=== PATIENT | female | born 1990 | race Caucasian/White ===

== ENCOUNTER 2018-05-04 21:07 | Inpatient (IN) | payer OTHER, MEDICAID ==
[~2018-05-04] VITALS: Ht 177.8 cm; Wt 77.8 kg
[2018-05-04] MEDS ORDERED: methylPREDNISolone SOD SUCC 125 MG/2 ML ONE (21:40)
[2018-05-04] MEDS: ALBUTEROL 0.5%, 20ML NPPB SCH ×2 (21:43→23:07)
[2018-05-04] MEDS ORDERED: methylPREDNISolone SOD SUCC 125 MG/2 ML IVP ONE (22:00)
[2018-05-04 22:07] LABS: BASOPHILS # (AUTO) 0.09 x10^3/uL (0-0.1); BASOPHILS % (AUTO) 1 % (0-1); EOSINOPHILS # (AUTO) 1.38 x10^3/uL (0-0.4); EOSINOPHILS % (AUTO) 13 % (1-7); LYMPHOCYTES # (AUTO) 2.93 x10^3/uL (1-3.4); LYMPHOCYTES % (AUTO) 27 % (22-44); MD NO; MEAN CORPUSCULAR HEMOGLOBIN 30.6 pg (27.0-34.8); MEAN CORPUSCULAR VOLUME 89.9 fL (80-100); MEAN PLATELET VOLUME 7.9 fL (7.4-10.4); MONOCYTES % (AUTO) 12 % (2-9); NEUTROPHILS # (AUTO) 5.11 x10^3/uL (1.8-6.8); NEUTROPHILS % (AUTO) 47 % (42-75); PLATELET COUNT 243 x10^3/uL (130-400); RED BLOOD COUNT 5.71 x10^6/uL (3.82-5.3); RED CELL DISTRIBUTION WIDTH 13.1 % (9.6-15.2)
[2018-05-04 22:17] LABS: ALANINE AMINOTRANSFERASE 89 U/L (12-78); ALBUMIN 3.4 g/dL (3.4-5.0); ANION GAP 6 mmol/L (5-15); CALCIUM 8.6 mg/dL (8.5-10.1); CHLORIDE 105 mmol/L (98-107)
[2018-05-04 22:20] LABS: ALKALINE PHOSPHATASE 88 U/L (45-117); BILIRUBIN,TOTAL 0.7 mg/dL (0.2-1.0); TOTAL PROTEIN 8.2 g/dL (6.4-8.2)
[2018-05-04] MEDS ORDERED: ALBUTEROL SULFATE 2.5 MG/3 ML ONE (23:02)
[2018-05-04] MEDS ORDERED: ONDANSETRON ODT 4 MG PO PRN (23:30)
[2018-05-04] MEDS ORDERED: BISACODYL 10 MG SUPP PR PRN (23:30)
[2018-05-04] MEDS ORDERED: POLYETHYLENE GLYCOL 17 GM PACKET PO PRN (23:30)
[2018-05-04 23:44] VITALS: BP 107/74
[2018-05-05] MEDS: methylPREDNISolone SOD SUCC 125 MG/2 ML IVPush SCH ×5 (00:37→23:15)
[2018-05-05] MEDS: NICOTINE 14MG/24 HR PATCH.TD24 TD SCH ×2 (00:37→23:15)
[2018-05-05] MEDS: HEPARIN 5,000 UNITS/ML, 1ML SQ SCH ×4 (00:38→23:15)
[2018-05-05] MEDS: SODIUM CHLORIDE FLUSH 10ML SYR IVF SCH ×3 (00:38→23:14)
[2018-05-05 04:12] VITALS: BP 114/76
[2018-05-05 04:13] LABS: ALBUMIN 3.4 g/dL (3.4-5.0); ANION GAP 7 mmol/L (5-15); CALCIUM 8.4 mg/dL (8.5-10.1); CHLORIDE 105 mmol/L (98-107)
[2018-05-05 04:17] LABS: ALANINE AMINOTRANSFERASE 92 U/L (12-78); ALKALINE PHOSPHATASE 89 U/L (45-117); BILIRUBIN,TOTAL 0.8 mg/dL (0.2-1.0); CREATININE 0.62 mg/dL (0.55-1.02); TOTAL PROTEIN 8.3 g/dL (6.4-8.2)
[2018-05-05 04:18] LABS: BASOPHILS # (AUTO) 0.01 x10^3/uL (0-0.1); BASOPHILS % (AUTO) 0 % (0-1); EOSINOPHILS # (AUTO) 0.04 x10^3/uL (0-0.4); EOSINOPHILS % (AUTO) 1 % (1-7); LYMPHOCYTES # (AUTO) 0.82 x10^3/uL (1-3.4); LYMPHOCYTES % (AUTO) 10 % (22-44); MD NO; MEAN CORPUSCULAR HEMOGLOBIN 29.9 pg (27.0-34.8); MEAN CORPUSCULAR HGB CONC 33.4 g/dL (32.4-35.8); MEAN CORPUSCULAR VOLUME 89.6 fL (80-100); MONOCYTES # (AUTO) 0.03 x10^3/uL (0.2-0.8); MONOCYTES % (AUTO) 0 % (2-9); NEUTROPHILS # (AUTO) 7.03 x10^3/uL (1.8-6.8); NEUTROPHILS % (AUTO) 89 % (42-75); PLATELET COUNT 262 x10^3/uL (130-400); RED CELL DISTRIBUTION WIDTH 13.2 % (9.6-15.2)
[2018-05-05 07:47] VITALS: BP 126/81
[2018-05-05] MEDS: CEFTRIAXONE PMX 1GM/50ML 50 ML IV SCH (08:59)
[2018-05-05] MEDS: SENNA/DOCUSATE TABLET PO SCH (09:00)
[2018-05-05] MEDS: ALBUTEROL SULFATE 2.5 MG/3 ML NPPB PRN ×2 (09:12→16:16)
[2018-05-05] MEDS: DOXYCYCLINE 100 MG in DEXTROSE 5% 250 ML IV SCH ×2 (10:00→23:14)
[2018-05-05] MEDS ORDERED: ACETAMINOPHEN 325 MG TABLET PO PRN (10:00)
[2018-05-05 12:10] LABS: RAPID INFLUENZA A Negative (Negative); RAPID INFLUENZA B Negative (Negative)
[2018-05-05 14:47] VITALS: BP 124/79
[2018-05-05] MEDS: HYDROcodone/APAP 5/325 TABLET PO PRN ×2 (18:04→23:15)
[2018-05-05 20:10] VITALS: BP 100/65
[2018-05-05] MEDS: ALBUTEROL SULFATE 2.5 MG/3 ML NPPB SCH (20:59)
[2018-05-05] MEDS: GUAIFENESIN ER 600 MG TABLET PO SCH (23:14)
[2018-05-06 01:23] VITALS: BP 108/76
[2018-05-06] MEDS: methylPREDNISolone SOD SUCC 125 MG/2 ML IVPush SCH ×4 (04:49→23:37)
[2018-05-06 06:06] LABS: MEAN CORPUSCULAR HEMOGLOBIN 30.4 pg (27.0-34.8); MEAN CORPUSCULAR HGB CONC 33.5 g/dL (32.4-35.8); MEAN CORPUSCULAR VOLUME 90.6 fL (80-100); MEAN PLATELET VOLUME 8.3 fL (7.4-10.4); PLATELET COUNT 282 x10^3/uL (130-400); RED BLOOD COUNT 5.57 x10^6/uL (3.82-5.3)
[2018-05-06 06:26] LABS: CHLORIDE 103 mmol/L (98-107)
[2018-05-06 06:33] LABS: ALANINE AMINOTRANSFERASE 79 U/L (12-78); ALBUMIN 3.3 g/dL (3.4-5.0); ALKALINE PHOSPHATASE 80 U/L (45-117); ANION GAP 11 mmol/L (5-15); BILIRUBIN,TOTAL 0.7 mg/dL (0.2-1.0); CALCIUM 8.9 mg/dL (8.5-10.1); CREATININE 0.61 mg/dL (0.55-1.02); TOTAL PROTEIN 7.8 g/dL (6.4-8.2)
[2018-05-06 06:56] LABS: BASOPHILS # (AUTO) 0.02 x10^3/uL (0-0.1); BASOPHILS % (AUTO) 0 % (0-1); EOSINOPHILS # (AUTO) 0.02 x10^3/uL (0-0.4); EOSINOPHILS % (AUTO) 0 % (1-7); LYMPHOCYTES % (AUTO) 8 % (22-44); MD SCAN; MONOCYTES # (AUTO) 0.78 x10^3/uL (0.2-0.8); MONOCYTES % (AUTO) 4 % (2-9); NEUTROPHILS # (AUTO) 17.04 x10^3/uL (1.8-6.8); NEUTROPHILS % (AUTO) 88 % (42-75)
[2018-05-06 07:40] VITALS: BP 121/79
[2018-05-06] MEDS: HEPARIN 5,000 UNITS/ML, 1ML SQ SCH ×3 (07:43→23:37)
[2018-05-06] MEDS: SENNA/DOCUSATE TABLET PO SCH (07:43)
[2018-05-06] MEDS: GUAIFENESIN ER 600 MG TABLET PO SCH ×2 (07:43→21:38)
[2018-05-06] MEDS: SODIUM CHLORIDE FLUSH 10ML SYR IVF SCH ×2 (07:43→21:38)
[2018-05-06] MEDS: HYDROcodone/APAP 5/325 TABLET PO PRN ×4 (07:43→23:37)
[2018-05-06] MEDS: CEFTRIAXONE PMX 1GM/50ML 50 ML IV SCH (10:23)
[2018-05-06] MEDS: ALBUTEROL SULFATE 2.5 MG/3 ML NPPB SCH ×5 (11:00→23:05)
[2018-05-06] MEDS: DOXYCYCLINE 100 MG in DEXTROSE 5% 250 ML IV SCH ×2 (11:32→23:36)
[2018-05-06 12:07] VITALS: BP 122/79
[2018-05-06] MEDS: KETOROLAC 30 MG/1 ML IVPush PRN ×2 (15:26→21:38)
[2018-05-06 20:00] VITALS: BP 109/65
[2018-05-06] MEDS: NICOTINE 14MG/24 HR PATCH.TD24 TD SCH (23:38)
[2018-05-07 00:34] VITALS: BP 133/85
[2018-05-07 04:00] VITALS: BP 123/84
[2018-05-07] MEDS: KETOROLAC 30 MG/1 ML IVPush PRN (04:09)
[2018-05-07] MEDS: HYDROcodone/APAP 5/325 TABLET PO PRN ×2 (05:45→12:54)
[2018-05-07] MEDS: methylPREDNISolone SOD SUCC 125 MG/2 ML IVPush SCH ×2 (05:47→11:22)
[2018-05-07 06:09] LABS: BASOPHILS % (AUTO) 0 % (0-1); EOSINOPHILS % (AUTO) 0 % (1-7); LYMPHOCYTES # (AUTO) 1.19 x10^3/uL (1-3.4); LYMPHOCYTES % (AUTO) 7 % (22-44); MD NO; MEAN CORPUSCULAR HEMOGLOBIN 30.5 pg (27.0-34.8); MEAN CORPUSCULAR VOLUME 89.6 fL (80-100); MEAN PLATELET VOLUME 8.3 fL (7.4-10.4); MONOCYTES # (AUTO) 0.69 x10^3/uL (0.2-0.8); MONOCYTES % (AUTO) 4 % (2-9); NEUTROPHILS # (AUTO) 15.32 x10^3/uL (1.8-6.8); NEUTROPHILS % (AUTO) 89 % (42-75); PLATELET COUNT 286 x10^3/uL (130-400); RED BLOOD COUNT 5.69 x10^6/uL (3.82-5.3); RED CELL DISTRIBUTION WIDTH 12.8 % (9.6-15.2)
[2018-05-07 06:16] LABS: ANION GAP 11 mmol/L (5-15); CALCIUM 8.8 mg/dL (8.5-10.1); CHLORIDE 102 mmol/L (98-107)
[2018-05-07 06:17] LABS: CREATININE 0.73 mg/dL (0.55-1.02)
[2018-05-07] MEDS: ALBUTEROL SULFATE 2.5 MG/3 ML NPPB SCH ×3 (07:20→14:00)
[2018-05-07 07:22] VITALS: BP 106/66
[2018-05-07] MEDS: HEPARIN 5,000 UNITS/ML, 1ML SQ SCH (07:47)
[2018-05-07] MEDS: GUAIFENESIN ER 600 MG TABLET PO SCH (07:47)
[2018-05-07] MEDS: SENNA/DOCUSATE TABLET PO SCH (07:47)
[2018-05-07] MEDS: CEFTRIAXONE PMX 1GM/50ML 50 ML IV SCH (07:47)
[2018-05-07] MEDS: SODIUM CHLORIDE FLUSH 10ML SYR IVF SCH (07:48)
[2018-05-07] MEDS ORDERED: METH40TA3 PO (08:35)
[2018-05-07] MEDS: DOXYCYCLINE 100 MG in DEXTROSE 5% 250 ML IV SCH (11:22)
[2018-05-07 12:18] VITALS: BP 122/81
[2018-05-07] MEDS ORDERED: GUAI600T31 PO (13:47)
[2018-05-07] MEDS ORDERED: DOXY100T PO (13:47)
[2018-05-07] MEDS ORDERED: CEFD300C37 PO (13:47)
[2018-05-07] MEDS ORDERED: PRED20TA PO (13:47)
== END 2018-05-07 15:00 | DRG 193 ==
LOC: ED 21:43 → 4WST 23:01
PROVIDERS: ADMIT Hospitalist; ATTEND Hospitalist
DX: J18.9 Pneumonia, unspecified organism (principal); J96.01 Acute respiratory failure with hypoxia; F11.23 Opioid dependence with withdrawal; F15.10 Other stimulant abuse, uncomplicated; F17.210 Nicotine dependence, cigarettes, uncomplicated; J45.909 Unspecified asthma, uncomplicated; T38.0X5A Adverse effect of glucocorticoids and synthetic analogues, initial encounter; Z59.0 Homelessness; R74.0 Nonspecific elevation of levels of transaminase and lactic acid dehydrogenase [LDH]; Y92.89 Other specified places as the place of occurrence of the external cause
CPT/HCPCS: 36415; 36600; 87400; 87806; 99291; J7613; 71045; 71260; 80048; 80053; 80074; 82803; 83880; 85025; 87040; 87521; 90656; 93005; 94640; 96374; G0378; J0696; J1644; J1885; J7060; G0475; J2930

== ENCOUNTER 2019-10-14 11:00 | Emergency (ER) | payer OTHER, MEDICAID ==
[~2019-10-14] VITALS: Ht 177.8 cm; Wt 74.1 kg
[~2019-10-14 11:00] MED LIST: CEFD300C37 PO; DOXY100T PO; GUAI600T31 PO; METH40TA3 PO; PRED20TA PO
--- NOTE | 2019-10-14 11:31 | NUR ---
Pt ambulated to room 22 per [facility] in [place] [facility] with 2 police officers. Pt tore part of her croc and made a makeshift earplug on Monday due to her cellmate whistling while she tried to take a nap. A piece of the material broke when she tried to get it out. While trying to retrieve it, a piece got pushed up against her eardrum, and they were unable to get it out. Upon looking into right ear, bright orange piece lodged deep inside the canal. PA in to assess patient.
--- NOTE | 2019-10-14 11:34 | NUR ---
PA in with RN assist, 1cm piece of orange material pulled from right ear.
--- NOTE | 2019-10-14 11:35 | NUR ---
MD in to assess patient.
--- NOTE | 2019-10-14 11:46 | NUR ---
Discharge instructions given to guards with patient, along with one prescription with all the instructions on use. Piece of shoe placed in biohazard bag and given to officer. Pt and guards verbalize understanding of all instructions and follow up, as well as medications. Pt ambulated out of ED per [facility] in [place] with 2 officers.
[2019-10-14 11:49] VITALS: BP 119/72
== END 2019-10-14 11:51 | disposition home or self-care (01) ==
LOC: ED 11:06
DX: T16.1XXA Foreign body in right ear, initial encounter (principal); H60.501 Unspecified acute noninfective otitis externa, right ear; J45.909 Unspecified asthma, uncomplicated; X58.XXXA Exposure to other specified factors, initial encounter; Y93.89 Activity, other specified; Y92.89 Other specified places as the place of occurrence of the external cause; Y99.8 Other external cause status
CPT/HCPCS: 69200; 99284